=== PATIENT | female | born 1945 | race Caucasian/White ===

== ENCOUNTER 2021-02-24 06:14 | Observation (INO) | payer OTHER ==
[~2021-02-24] VITALS: Ht 162.6 cm; Wt 90.7 kg
[2021-02-24 06:52] LABS: HEMOGLOBIN 11.8 gm/dl (12.3-15.3); RED BLOOD COUNT 4.09 M/UL (4.00-5.10); WHITE BLOOD COUNT 8.8 K/UL (4.5-11.0)
[2021-02-24 07:24] LABS: BUN/CREATININE RATIO 26 (0-10)
[2021-02-24] MEDS ORDERED: PROTONIX 40 MG40 M1 PO (09:48)
[2021-02-24] MEDS ORDERED: ZYLOPRIM100 MG PO (09:48)
[2021-02-24] MEDS ORDERED: CYCLOBENZAPRINE10 MG PO (09:48)
[2021-02-24] MEDS ORDERED: JANUVIA 100 MG100 MG PO (09:49)
[2021-02-24] MEDS ORDERED: IRON325 M1 PO (09:49)
[2021-02-24] MEDS ORDERED: HYDROXYZINE HCL25 MG PO (09:49)
[2021-02-24] MEDS ORDERED: AMITRIPTYLINE H25 MG PO (09:50)
[2021-02-24] MEDS ORDERED: SYNTHROID50 MCG PO (09:50)
[2021-02-24] MEDS ORDERED: CRESTOR20 MG PO (09:50)
[2021-02-24] MEDS ORDERED: LASIX20 MG PO (09:51)
[2021-02-24] MEDS ORDERED: LOPRESSOR100 MG PO (09:51)
[2021-02-24] MEDS ORDERED: CLARITIN 10MG T10 MG PO (10:11)
[2021-02-24] MEDS ORDERED: ECOTRIN81 MG PO (10:11)
[2021-02-24] MEDS ORDERED: MILK THISTLE175 M1 PO (10:14)
[2021-02-24] MEDS ORDERED: B COMPLEX1 EACH PO (10:16)
[2021-02-24] MEDS ORDERED: FOLIC ACID0.4 MG PO (10:16)
[2021-02-24] MEDS ORDERED: CELEBREX200 MG PO (10:40)
[2021-02-24] MEDS ORDERED: VITAMIN C250 MG PO (10:42)
[2021-02-24] MEDS ORDERED: VITAMIN D325 MCG PO (10:43)
[2021-02-24] MEDS ORDERED: PROBIOTIC1 EAC1 PO (10:43)
[2021-02-24] MEDS ORDERED: CO Q-10100 MG PO (10:44)
[2021-02-24] MEDS ORDERED: SENTRY TABLET1 EACH PO (10:44)
== END 2021-02-24 17:53 | disposition home or self-care (01) ==
LOC: ER1 06:14 → CDU 08:08 → M/S 09:25
PROVIDERS: Family Medicine; ADMIT Internal Medicine
DX: R07.9 Chest pain, unspecified (principal); E78.5 Hyperlipidemia, unspecified; I10 Essential (primary) hypertension; E03.9 Hypothyroidism, unspecified; E66.9 Obesity, unspecified; E11.9 Type 2 diabetes mellitus without complications; Z90.49 Acquired absence of other specified parts of digestive tract; Z88.5 Allergy status to narcotic agent; Z88.0 Allergy status to penicillin; Z82.49 Family history of ischemic heart disease and other diseases of the circulatory system; Z85.89 Personal history of malignant neoplasm of other organs and systems; Z20.822 Contact with and (suspected) exposure to COVID-19
CPT/HCPCS: ECHO; 36415; 71045; 80053; 82550; 82553; 83036; 83874; 84484; 85025; 93005; 93270; 93306; 99284; G0378; U0002

== ENCOUNTER 2021-11-22 07:52 | Observation (INO) | payer OTHER ==
[~2021-11-22] VITALS: Ht 162.6 cm; Wt 85.7 kg
[~2021-11-22 07:52] MED LIST: ALENDRONATE SOD70 MG PO; B COMPLEX1 EACH PO; CLARITIN 10MG T10 MG PO; CO Q-10100 MG PO; CRESTOR20 MG PO; ECOTRIN81 MG PO; FOLIC ACID0.4 MG PO; HYDROXYZINE HCL25 MG PO; IRON325 M1 PO; JANUVIA 100 MG100 MG PO; LOPRESSOR100 MG PO; MILK THISTLE175 M1 PO; PROBIOTIC1 EAC1 PO; SENTRY TABLET1 EACH PO; ZYLOPRIM100 MG PO
[2021-11-22 08:48] LABS: HEMOGLOBIN 12.8 gm/dl (12.3-15.3); RED BLOOD COUNT 4.42 M/UL (4.00-5.10); WHITE BLOOD COUNT 9.1 K/UL (4.5-11.0)
[2021-11-22 09:15] LABS: BUN/CREATININE RATIO 24 (0-10)
[2021-11-22] MEDS ORDERED: PROTONIX 40 MG40 M1 PO (09:48)
[2021-11-22] MEDS ORDERED: CYCLOBENZAPRINE10 MG PO (09:48)
[2021-11-22] MEDS ORDERED: LEVOTHYROXINE75 MCG PO (09:50)
[2021-11-22] MEDS ORDERED: AMITRIPTYLINE H25 MG PO (09:50)
[2021-11-22] MEDS ORDERED: LASIX20 MG PO (09:51)
[2021-11-22] MEDS ORDERED: CELEBREX200 MG PO (10:40)
[2021-11-22] MEDS ORDERED: VITAMIN C 500500 MG PO (10:42)
[2021-11-22] MEDS ORDERED: VITAMIN D3125 MCG PO (10:43)
[2021-11-22] MEDS ORDERED: GLUCOPHAGE 500500 MG PO (14:18)
[2021-11-22] MEDS ORDERED: CALCIUM MAG ZINC PO (14:37)
[2021-11-23 05:18] LABS: HEMOGLOBIN 12.2 gm/dl (12.3-15.3); RED BLOOD COUNT 4.28 M/UL (4.00-5.10); WHITE BLOOD COUNT 9.9 K/UL (4.5-11.0)
[2021-11-23 06:12] LABS: BUN/CREATININE RATIO 24 (0-10)
[2021-11-23] MEDS ORDERED: LISINOPRIL10 MG PO (11:17)
[2021-11-23] MEDS ORDERED: CLOPIDOGREL75 MG PO (11:17)
== END 2021-11-23 18:25 | disposition home or self-care (01) ==
LOC: ER1 07:52 → CCU 11:38 → CDU 11:38 → CCU 20:55
PROVIDERS: Emergency Medicine; Physician Assistant; ADMIT Internal Medicine
DX: G45.9 Transient cerebral ischemic attack, unspecified (principal); Z20.822 Contact with and (suspected) exposure to COVID-19; I16.0 Hypertensive urgency; H91.90 Unspecified hearing loss, unspecified ear; M10.9 Gout, unspecified; E11.42 Type 2 diabetes mellitus with diabetic polyneuropathy; E03.9 Hypothyroidism, unspecified; I10 Essential (primary) hypertension; I44.0 Atrioventricular block, first degree; M81.0 Age-related osteoporosis without current pathological fracture; Q21.1 Atrial septal defect; Z79.82 Long term (current) use of aspirin; Z79.84 Long term (current) use of oral hypoglycemic drugs; Z79.899 Other long term (current) drug therapy; Z88.0 Allergy status to penicillin; Z88.5 Allergy status to narcotic agent
CPT/HCPCS: ECHO; 70450; 70551; 80053; 80061; 81001; 82550; 82553; 82962; 83735; 83874; 84484; 85025; 93005; 93306; 93880; 96374; 96376; 97161; 97165; 99285; G0378; J0360; U0002

== ENCOUNTER 2021-12-10 22:48 | Observation (INO) | payer OTHER ==
[~2021-12-10] VITALS: Ht 162.6 cm; Wt 83.9 kg
[~2021-12-10 22:48] MED LIST changes: +AMITRIPTYLINE H25 MG PO; +CALCIUM MAG ZINC PO; +CELEBREX200 MG PO; +CLOPIDOGREL75 MG PO; +CYCLOBENZAPRINE10 MG PO; -ECOTRIN81 MG PO; +GLUCOPHAGE 500500 MG PO; +LASIX20 MG PO; +LEVOTHYROXINE75 MCG PO; +LISINOPRIL10 MG PO; +PROTONIX 40 MG40 M1 PO; +VITAMIN C 500500 MG PO; +VITAMIN D3125 MCG PO
[2021-12-11 00:39] LABS: HEMOGLOBIN 11.5 gm/dl (12.3-15.3); RED BLOOD COUNT 4.11 M/UL (4.00-5.10); WHITE BLOOD COUNT 12.3 K/UL (4.5-11.0)
[2021-12-11 01:34] LABS: BUN/CREATININE RATIO 21 (0-10)
[2021-12-11] MEDS ORDERED: ECOTRIN81 MG PO (10:11)
[2021-12-12 03:52] LABS: HEMOGLOBIN 10.9 gm/dl (12.3-15.3); RED BLOOD COUNT 3.84 M/UL (4.00-5.10)
[2021-12-12 03:59] LABS: WHITE BLOOD COUNT 7.2 K/UL (4.5-11.0)
[2021-12-12 04:08] LABS: BUN/CREATININE RATIO 19 (0-10)
[2021-12-12] MEDS ORDERED: HYDROCHLOROTHIA25 MG PO (10:45)
[2021-12-12] MEDS ORDERED: ASPIRIN EC81 MG PO (10:45)
[2021-12-12] MEDS ORDERED: LOPRESSOR 50 MG50 MG PO (10:45)
== END 2021-12-12 14:17 | disposition home or self-care (01) ==
LOC: ER1 22:48 → CDU 12-11 03:06 → MED SURG 4 12-11 09:35
PROVIDERS: Physician Assistant; ADMIT Internal Medicine
DX: R07.89 Other chest pain (principal); R51.9 Headache, unspecified; I10 Essential (primary) hypertension; E83.42 Hypomagnesemia; E11.9 Type 2 diabetes mellitus without complications; F41.9 Anxiety disorder, unspecified; E03.9 Hypothyroidism, unspecified; R53.83 Other fatigue; R06.02 Shortness of breath; Z82.49 Family history of ischemic heart disease and other diseases of the circulatory system; Z88.5 Allergy status to narcotic agent; Z88.0 Allergy status to penicillin; Z20.822 Contact with and (suspected) exposure to COVID-19; Z90.49 Acquired absence of other specified parts of digestive tract; Z90.710 Acquired absence of both cervix and uterus; Z96.653 Presence of artificial knee joint, bilateral
CPT/HCPCS: 0240U; 36415; 71045; 80048; 80053; 80061; 81001; 82550; 82553; 82962; 83036; 83735; 84439; 84443; 84484; 85025; 87086; 93005; 96365; 99285; G0378; J3475